=== PATIENT | female | born 1960 | race Caucasian/White ===

== ENCOUNTER 2020-08-14 13:41 | Outpatient (REF) | payer OTHER, SELFPAY ==
[2020-08-14 14:57] LABS: MANUAL DIFF FLAG NO
[2020-08-14 14:59] LABS: Basophils Absolute Auto 0.1 X10*3/uL (0.0-0.2); Basophils Percent Auto 0.6 % (0-2); Eosinophils Absolute Auto 0.1 X10*3/uL (0.0-0.4); Eosinophils Percent Auto 1.4 % (0-4); Hematocrit 42.5 % (37-47); Hemoglobin 13.3 g/dl (12.0-16.0); Imm Gran Abs Auto 0.02 X10*3/uL (0.00-0.03); Imm Gran Pct Auto 0.2 % (0.0-0.4); Lymphocytes Absolute Auto 2.6 X10*3/uL (1.2-4.9); Lymphocytes Percent Auto 29.7 % (20-40); Mean Corpuscular HGB Conc 31.3 g/dl (31.0-35.0); Mean Corpuscular Hemoglobin 27.1 pg (27.0-33.0); Mean Corpuscular Volume 86.6 fL (80-98); Monocytes Absolute Auto 0.5 X10*3/uL (0.1-1.2); Monocytes Percent Auto 5.8 % (2-11); Neutrophils Absolute Auto 5.4 X10*3/uL (2.0-8.3); Neutrophils Percent Auto 62.3 % (45-73); Platelet Count 180 X10*3/uL (160-400); Red Blood Count 4.91 X10*6/uL (4.20-5.50); Red Cell Distribution Width 13.9 % (11.0-16.0); White Blood Count 8.7 X10*3/uL (4.8-10.8)
[2020-08-14 15:31] LABS: Anion Gap 16 (12-20); Blood Urea Nitrogen 23 mg/dL (9-16); Carbon Dioxide 29 mmol/L (22-29); Chloride 100 mmol/L (96-108); Estimated Glomerular Filt Rate > 60; Glucose Random 85 mg/dL (60-115); Potassium 4.5 mmol/l (3.3-5.1); Sodium 140 mmol/L (135-145)
== END 2020-08-14 13:42 | disposition home or self-care (01) ==
LOC: HO.LAB 13:41
PROVIDERS: PCP Internal Medicine; Visit Provider Physician Assistant
DX: Z01.812 Encounter for preprocedural laboratory examination (principal); M17.12 Unilateral primary osteoarthritis, left knee
CPT/HCPCS: 36415; 80048; 85025

== ENCOUNTER 2020-08-19 06:00 | Inpatient (IN) | payer OTHER, SELFPAY ==
[2020-08-05 12:20] VITALS: BP 164/93; PULSE 68; RESP 20; O2SAT 99; BMI 30.4
--- NOTE | 2020-08-05 12:26 | HO.ANESPROP2 ---
Documented by User: Meena Huston 08/18/20 09:59 HPI - Anesthesia Eval Consult details Narrative: 60yo F for Left Knee Replacement Total Originally scheduled for 03/2020, but patient had fall with Lef[place] III facial fractures s/p ORIF. PCP Cleared Pt requests only in network anesthesia. [facility] Past Medical History Medical History Arthritis Closed [place] III fracture Hx of fracture of face bones Hypertension Family History Family history of problems with anesthesia: No Surgical History Surgical History History of dental surgery History of left knee surgery History of lumbar discectomy Hx of section Hx of hysterectomy History of Problems with Anesthesia: No Social History Social History Are you a primary health care marketing manager to a significant other at home: No Do you presently have visiting nurse or other home services: No Smoking Status: Former smoker Tobacco Type: Cigarette Smoking Quit Date: 01/2018 Second Hand Smoke Exposure: No Use of substances other than those prescribed or required for medical reasons: No Have you been hit, kicked, punched, or otherwise hurt by someone within the past year? 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 >4 mets with working on feet. Meds Allergies Allergy/AdvReac Type Severity Reaction Status Date / Time No Known Allergies Allergy Verified 08/19/20 06:30 [No Known Allergies*] Home Medications Medication Instructions Recorded Confirmed Type gabapentin 2 cap PO BEDTIME 08/05/20 08/05/20 History lisinopril 1 tab PO DAILY 08/05/20 08/05/20 History Exam Exam Date and Time: August 05, 2020 1226 Height,Weight and Vital Signs: Height 5 ft 6 in Weight 85.729 kg Last Vital Signs Pulse 68 08/05/20 12:20 Resp 20 08/05/20 12:20 BP 164/93 H 08/05/20 12:20 Pulse Ox 99 08/05/20 12:20 Pertinent Lab Results Pertinent Lab Results: 12/1/20 Outside lab results Na 140, K 4.0, Cl 102, CO2 27, BUN 24(H), Creat 0.90 WBC, Hgb, Hct, Plt WNL Narrative Narrative: EKG 08/05/20: SR@66, PVC Airway Mallampati Class: I TM Dist: >3cm Neck ROM: Full Denture: Upper (Doesn't wear since upper jaw fx) Heart: RRR Lungs: CTAB Assessment and Plan Assessment Anesthesia Assessment: Anesthesia Plan Discussed (Spinal and block) and PAT Visit Documented by User: Edenilson Kimble MD 08/19/20 08:31 PMFSH Past Medical History Medical History Arthritis Closed [place] III fracture Hx of fracture of face bones Hypertension Surgical History Surgical History History of dental surgery History of left knee surgery History of lumbar discectomy Hx of section Hx of hysterectomy Social History Social History Are you a primary health care marketing manager to a significant other at home: No Do you presently have visiting nurse or other home services: No Smoking Status: Former smoker Tobacco Type: Cigarette Smoking Quit Date: 01/2018 Second Hand Smoke Exposure: No Use of substances other than those prescribed or required for medical reasons: No Have you been hit, kicked, punched, or otherwise hurt by someone within the past year? 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[employer] Allergies Allergy/AdvReac Type Severity Reaction Status Date / Time No Known Allergies Allergy Verified 08/19/20 06:30 [No Known Allergies*] Home Medications Medication Instructions Recorded Confirmed Type gabapentin 2 cap PO BEDTIME 12/01/20 12/01/20 History lisinopril 1 tab PO DAILY 08/05/20 08/05/20 History Assessment and Plan Assessment Anesthesia Assessment: Anesthesia Plan Discussed, PAT Visit and Chart Reviewed Final Anesthetic Review NPO: Yes ASA Class: II Final Preanesthetic Review: No Changes in Pt Med Stat, Meds/Allgs Chart Reviewed, Consent Obtained/Reviewed and Anes Risks/Benef Reviewed Patient Risk: Low Procedure Risk: Intermediate Anesthetic Plan Anesthetic Plan: MAC:, Spinal and Regional Block Disposition: Standard PACU
[2020-08-19] VITALS (17 sets, daily range): BP systolic 88–143; BP diastolic 53–96; PULSE 52–90; RESP 16–20; TEMP 36.1–36.8; O2SAT 67–100
[2020-08-19] MEDS: Gabapentin 600 MG TABLET PO (06:30)
[2020-08-19] MEDS: ceFAZolin Sodium/Dextrose,Iso 2 GM/50 ML PIGGYBACK IV ×2 (06:31→12:14)
[2020-08-19 06:32] LABS: COVID-19 Test Negative (Negative)
[2020-08-19] MEDS: Lactated Ringers 1,000 ML 100 ML IVCONT (06:50)
--- NOTE | 2020-08-19 07:28 | MHC.SHP ---
Pre-Procedural Eval Section A The patient is an INPATIENT: No Changes since office visit: Yes Patient answered all questions; No Cold of Flu in the past 2 weeks, No New Medical Problems and No Changes in Medication The History & Physical has been completed within 30 days and I have reviewed it.: No Section B Chief Complaint: LEFT TOTAL KNEE ARTHROPLASTY Allergies: Allergies Allergy/AdvReac Type Severity Reaction Status Date / Time No Known Allergies Allergy Verified 08/19/20 06:30 [No Known Allergies*] Plan Patient has been examined and remains a candidate for the planned procedure
--- NOTE | 2020-08-19 09:10 | PM.OP ---
Brief Operative Note Date of Service: 08/19/20 Pre-op diagnosis: left knee oa Post-op diagnosis: same Procedure: left tka Implants: [place] triathalon press fit 11/06/09 Surgeon: Delfin Suazo MD Anesthesia: regional and spinal Echo Technologist: Freddy Alberto Estimated blood loss (mL): 150 Tourniquet time (min): 0 IV fluids (mL): 800 Urine output (mL): 0 Pathology: other Condition: stable Disposition: PACU
--- NOTE | 2020-08-19 09:45 | XR_ITS ---
EXAMINATION: XR KNEE, LEFT CLINICAL INFORMATION: Status post left TKA COMPARISON: 05/17/2019 TECHNIQUE: Two views of the left knee. FINDINGS: Left total knee arthroplasty, with usual position and alignment of the arthroplasty components. Gas is seen in the joint space and soft tissues. Skin hussein. No acute periprosthetic fractures. XR/XR knee LT 2V IMPRESSION: Postsurgical changes status post left total knee arthroplasty..
--- NOTE | 2020-08-19 10:29 | OP_ITS ---
SURGEON: Delfin Suazo MD INDICATIONS: This is a 60-year-old female with osteoarthritis of the left knee, consented to undergo total knee arthroplasty. PREOPERATIVE DIAGNOSIS: Left knee osteoarthritis. POSTOPERATIVE DIAGNOSIS: Left knee osteoarthritis. PROCEDURE PERFORMED: Left total knee arthroplasty. ESTIMATED BLOOD LOSS: 150 mL. COMPLICATIONS: None known. ANESTHESIA: Regional and spinal. ASSISTANTS: JOVANNI Currie. SPECIMENS: IMPLANTS: [place] [employer] press-fit 11/06/09A. FLUIDS: 800. PROCEDURE IN DETAIL: The patient was brought to the operating room, placed supine on the operative table and prepped and draped in standard sterile fashion. Time-out was called to identify proper site, proper procedure, proper surgeon. IV antibiotics per weight was administered as well as 1 g of IV tranexamic acid. Midline incision was then made over previous patellar fracture incision. I dissected down her neck and performed a medial parapatellar arthrotomy. I translated the patella and flexed up the knee. She had tricompartmental severe osteoarthritis most notably in the articulation. She had some FiberWire evidenced from prior patella ORIF. I resected the fat pad, performed a small medial peel, used [place]'s line to drill my intramedullary femoral guide and then made my distal femoral cut in 5 degrees of valgus. I then sized a size 3 femur and made my anterior, posterior, and chamfer cuts, protecting soft tissues at all times. I then turned my attention to the tibia, where I took a 9 mm of the lateral side in line with the tibial crest and tibial tubercle. Posterior soft tissues were protected at all times. Meniscus was removed and once I had removed all of debris, a size 4 tibia was placed and trialed with size 3 femur. I was happy with the range of motion and stability. The undersurface of the patella was then resurfaced, and a 32A patella was selected. Again, I took knee through range of motion. I was happy with the tracking. Lug holes in the femur were drilled, tibial canal prepared, and all instrumentation removed. Copious irrigation was performed and then the tibia and femur were press-fit in standard fashion as well as the patella. Then, I trialed a 9 and 11 and was happiest with a 10. 10 mm CR insert was placed. All instrumentation was removed. 1 g of local TXA with 3-minute iodine soak was performed. Layered closure was performed with hussein on the skin. The patient was placed in sterile dressing, awakened from sedation, and brought to recovery room in stable condition. There were no known complications. MD LOPEZ Friedman/JETHOR / [id number]
[2020-08-19] MEDS: Dextrose 5 % and 0.45 % NaCl 1,000 ML 80 ML IVCONT (12:13)
[2020-08-19] MEDS: HYDROmorphone HCl 0.5 MG/0.5 ML SYRINGE 0.25 MG IVPUSH ×2 (14:00→17:52)
[2020-08-19] MEDS: ondansetron HCL 4 MG/2 ML VIAL IVPUSH (14:00)
--- NOTE | 2020-08-19 15:08 | PM.IMCN ---
History of Present Illness Data of Consult Service Date: 08/19/20 Requesting physician: Saud Mata Primary Care Provider: Frederick Bush MD [facility] Reason for consult: Medical Management 60-year-old woman admitted by Orthopedic surgery and is status post left total knee arthroplasty. Surgery was unremarkable. Patient has been able to eat and drink without any nausea or vomiting. She does have a moderate amount of pain. Her vital signs are stable. He is currently resting in bed with no acute medical complaints. Review of Systems Review of Systems: Denies any recent fever chills or decrease in appetite respiratory denies any shortness of breath coverage production cardiovascular is adjustment of any PND or edema gastrointestinal denies any dysphagia abdominal pain nausea vomiting or diarrhea genitourinary denies any dysuria frequency or hematuria musculoskeletal Knee pain neuropsych denies any weakness or seizures all other systems reviewed are negative [facility] Medical History Arthritis Closed [place] III fracture Hx of fracture of face bones Hypertension Surgical History History of dental surgery History of left knee surgery History of lumbar discectomy Hx of section Hx of hysterectomy Social History Are you a primary childbirth and infant care teacher to a significant other at home: No Do you presently have visiting nurse or other home services: No Smoking Status: Former smoker Tobacco Type: Cigarette Smoking Quit Date: 01/2018 Second Hand Smoke Exposure: No Use of substances other than those prescribed or required for medical reasons: No Have you been hit, kicked, punched, or otherwise hurt by someone within the past year? 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 [employer] Allergies Allergy/AdvReac Type Severity Reaction Status Date / Time No Known Allergies Allergy Verified 08/19/20 06:30 [No Known Allergies*] Home Medications Medication Instructions Recorded Confirmed Type gabapentin 600 mg PO BEDTIME PRN 08/05/20 08/19/20 History lisinopril 10 mg PO DAILY 08/05/20 08/19/20 History tizanidine 4 mg PO BEDTIME PRN 08/19/20 08/19/20 History Physical Exam Vital Signs and Narrative: Vital Signs: Last Vital Signs Temp 97.5 F 08/19/20 12:00 Pulse 67 08/19/20 14:11 Resp 17 08/19/20 12:00 BP 113/72 08/19/20 14:11 Pulse Ox 100 08/19/20 12:00 Body Mass Index 30.4 Appearing in no acute distress head is normocephalic atraumatic eyes pupils are PERRLA sclera is anicteric mouth throat mucous membranes are intact and moist neck is supple no lymphadenopathy, no JVD noted lung sounds are clear to auscultation heart regular rate rhythm, clear S1, S2 positive bowel sounds, abdomen is soft, nontender neuro patient is alert x3, no focal deficits MSK dressing clean dry and intact Results Labs Labs: Laboratory Results - last 24 hr 08/19/20 06:08 COVID-19 (KATIE) Negative COVID-19 Clin Com See Note Imaging Radiologist's Impressions: Impressions Knee X-Ray 08/19/20 09:45 IMPRESSION: Postsurgical changes status post left total knee arthroplasty.. Assessment and Plan (1) Osteoarthritis of left knee: Status: Acute 60-year-old woman status post left total knee arthroplasty. Left total knee arthroplasty. Management as per surgical team. Pain management. Hypertension. Stable blood pressure. Continue lisinopril. Restless legs syndrome. Continue gabapentin. DVT prophylaxis with full-dose aspirin. Discussed with Dr. Loyola Full code
[2020-08-19] MEDS: oxyCODONE HCl Immed Release 5 MG TABLET PO ×2 (15:24→21:32)
[2020-08-19] MEDS: oxyCODONE HCl ER 10 MG TAB.ER.12H PO (21:32)
[2020-08-19] MEDS: Gabapentin 300 MG CAPSULE 600 MG PO (21:32)
[2020-08-19] MEDS: Celecoxib 200 MG CAPSULE PO (21:32)
[2020-08-20] MEDS: Dextrose 5 % and 0.45 % NaCl 1,000 ML 80 ML IVCONT (00:29)
[2020-08-20 03:00] VITALS: BP 134/68; PULSE 78; RESP 19; TEMP 36.4; O2SAT 96
[2020-08-20] MEDS: oxyCODONE HCl Immed Release 5 MG TABLET PO ×3 (04:30→12:57)
[2020-08-20 07:16] VITALS: BP 149/83; PULSE 83; RESP 17; TEMP 36.9; O2SAT 96
[2020-08-20] MEDS: Aspirin 325 MG TABLET PO (08:42)
[2020-08-20] MEDS: Celecoxib 200 MG CAPSULE PO (08:43)
[2020-08-20] MEDS: oxyCODONE HCl ER 10 MG TAB.ER.12H PO (08:43)
[2020-08-20] MEDS: lisinopriL 10 MG TABLET PO (08:43)
[2020-08-20 09:00] LABS: MANUAL DIFF FLAG NO
[2020-08-20 09:41] LABS: Anion Gap 11 (12-20); Blood Urea Nitrogen 18 mg/dL (9-16); Calcium 7.8 mg/dL (8.4-10.2); Carbon Dioxide 28 mmol/L (22-29); Chloride 100 mmol/L (96-108); Creatinine Clr Calc Pharmacy 81.4; Estimated Glomerular Filt Rate > 60; Glucose Fasting 115 mg/dL (60-99); Potassium 4.2 mmol/l (3.3-5.1); Sodium 135 mmol/L (135-145)
[2020-08-20 10:13] VITALS: BP 149/83; PULSE 83; O2SAT 96
--- NOTE | 2020-08-20 10:13 | MHC.CM.PN ---
PT ADMITTED S/P LTKA, DISCHARGE PLAN TODAY W/ HOME PHYSICAL THERAPY, PER PT SHE WILL USE [facility], [facility] TO TRANSPORT PATIENT. 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 PHARMACY: [facility]
--- NOTE | 2020-08-20 10:15 | P.PNOP_ITS ---
Subjective Subjective Date of Service: 08/20/20 Principal diagnosis: LT TKA Interval history: POD 1 s/p LT TKA no overnight events, has been out of bed ambulating and using commode. She is tolerating pain well with medication. No concerns Physical Exam Vital Signs: Vital Signs: Last Vital Signs Temp 98.5 F 08/20/20 07:16 Pulse 83 08/20/20 10:13 Resp 17 08/20/20 07:16 BP 149/83 H 08/20/20 10:13 Pulse Ox 96 08/20/20 10:13 Body Mass Index 30.4 Const: General: cooperative, healthy appearing and no acute distress Resp: Effort & Inspection: normal respiratory effort and able to speak in complete sentences Cardio: Rate: regular rate Peripheral pulses: Peripheral pulses 2+ throughout GI: Inspection: Yes normal to inspection Palpation (GI): Soft to palpation Skin: General skin exam: no rashes or lesions noted Extrem: Other: Left knee bandage intact, no erythema mild edema, calf supple non tender. Progress Note: A&P Assessment and plan (1) Status post total left knee replacement: Status: Acute Assessment and Plan: Continue pain mgmnt Begin asa dvt ppx begin PT for LT TKA Dispo planning-Pending PT eval, pain mgmnt Fall Risk Details Current Medications: Current Medications Generic Name Dose Route Start Last Admin Trade Name Freq PRN Reason Stop Dose Admin Acetaminophen 650 mg 08/19/20 11:46 Acetaminophen 325 Mg Tablet PO Q6H PRN Pain, Mild (Pain Scale 1-3) Aspirin 325 mg 08/20/20 10:00 Aspirin 325 Mg Tablet PO BID VINOD Celecoxib 200 mg 08/19/20 21:00 08/19/20 21:32 Celecoxib 200 Mg Capsule PO 200 mg BID VINOD Administration Gabapentin 600 mg 08/19/20 21:00 08/19/20 21:32 Gabapentin 300 Mg Capsule PO 600 mg BEDTIME VINOD Administration Hydromorphone HCl 0.25 mg 08/19/20 11:46 08/19/20 17:52 Hydromorphone Hcl 0.5 Mg/0.5 Ml Syringe IVPUSH 0.25 mg Q4H PRN Administration Pain, Severe (Pain Scale 7-10) Dextrose/Sodium Chloride 1,000 mls @ 80 mls/hr 08/19/20 11:46 08/20/20 00:29 D51/2ns IVCONT 80 mls/hr .[id number] VINOD Administration Lisinopril 10 mg 08/20/20 09:00 Lisinopril 10 Mg Tablet PO DAILY [facility] Protocol Naloxone HCl 0.2 mg 08/19/20 11:46 Naloxone Hcl 0.4 Mg/Ml Vial IVPUSH Q2M PRN Excessive sedation or RR < 8 Ondansetron HCl 4 mg 08/19/20 11:46 08/19/20 14:00 Ondansetron Hcl 4 Mg/2 Ml Vial IVPUSH 4 mg Q8H PRN Administration Nausea and Vomiting Oxycodone HCl 5 mg 08/19/20 11:46 08/20/20 04:30 Oxycodone Hcl Immed Release 5 Mg Tablet PO 5 mg Q4H PRN Administration Pain, Moderate (Pain Scale 4-6 Oxycodone HCl 10 mg 08/19/20 21:00 08/19/20 21:32 Oxycodone Hcl Er 10 Mg Tab.Er.12h PO 10 mg BID VINOD Administration Pharmacy Consult 1 each 08/19/20 14:57 Consult Rx Perform Med Rec MISCELLANE ONCE PRN Consult order Senna 17.2 mg 08/19/20 11:46 Sennosides 8.6 Mg Tablet PO BEDTIME PRN Constipation Time Spent With Patient Time: Total time spent is greater than 50% in coordination of care (as do cumented) at patient's floor/unit and/or counseling patient: Time with patient: 15 - 24 minutes
[2020-08-20 10:42] LABS: Basophils Percent Auto 0.4 % (0-2); Eosinophils Percent Auto 0.4 % (0-4); Hematocrit 33.4 % (37-47); Hemoglobin 10.4 g/dl (12.0-16.0); Imm Gran Abs Auto 0.03 X10*3/uL (0.00-0.03); Imm Gran Pct Auto 0.3 % (0.0-0.4); Lymphocytes Absolute Auto 1.1 X10*3/uL (1.2-4.9); Lymphocytes Percent Auto 11.5 % (20-40); Mean Corpuscular HGB Conc 31.1 g/dl (31.0-35.0); Mean Corpuscular Hemoglobin 27.2 pg (27.0-33.0); Mean Corpuscular Volume 87.4 fL (80-98); Mean Platelet Volume 11.4 fL (9.4-12.3); Monocytes Absolute Auto 0.8 X10*3/uL (0.1-1.2); Monocytes Percent Auto 7.8 % (2-11); Neutrophils Absolute Auto 7.8 X10*3/uL (2.0-8.3); Neutrophils Percent Auto 79.6 % (45-73); Platelet Count 160 X10*3/uL (160-400); Red Blood Count 3.82 X10*6/uL (4.20-5.50); Red Cell Distribution Width 13.8 % (11.0-16.0); White Blood Count 9.8 X10*3/uL (4.8-10.8)
[2020-08-20 11:41] VITALS: BP 151/84; PULSE 89; RESP 15; TEMP 36.7; O2SAT 96
[2020-08-20 13:01] VITALS: BP 151/84; PULSE 89; O2SAT 96
--- NOTE | 2020-08-20 14:14 | P.F2F_ITS ---
Service Date Service Date: 08/20/20 Reasons for Services Reason for physical therapy: home safety and mobility, therapeutic exercises, restore joint function, gait/transfer training and ADL training Reason for occupational therapy: home safety and mobility, therapeutic exercises, restore joint function, gait/transfer training and ADL training Overseeing Care: Delfin Suazo Homebound: Leaving the home is medically contraindicated at this time without the asist of a device and/or another person due th the listed conditions above and below. Reason homebound: unsteady gait / fall risk, leg weakness, pain with ambulation, pain with transfers, poor balance / fall risk and unable to drive Homebound supporting statement: Pt. is considered home bound due to recent surgery. Unable to drive, poor balance, poor gait mechanics. Certification: Based on the above findings, I certify that this patient is confined to the home and needs intermittent halfway care, physical therapy and/or speech therapy, or continues to need occupational therapy. The patient is under my care, and I have initiated the establishment of the plan of care. The patient will be followed by a physician who will periodically review the plan of care.
--- NOTE | 2020-08-20 14:23 | HO.POSTANES ---
Post Anesthesia Evaluation Post Anesthesia Evaluation Vital Signs: Vital Signs Temp Pulse Resp BP Pulse Ox 08/20/20 13:01 89 151/84 H 96 08/20/20 11:41 98.0 F 89 15 151/84 H 96 08/20/20 10:13 83 149/83 H 96 08/20/20 07:16 98.5 F 83 17 149/83 H 96 08/20/20 03:00 97.6 F 78 19 134/68 96 Anesthesia: Spinal and Nerve Block Mental Status: Awake Pain Control: Satisfactory Nausea/Vomiting: None Hydration: Adequate Anesthesia-Related Issues: No Anes. Related Issues
--- NOTE | 2020-08-20 15:13 | P.DS_ITS ---
DS: Providers Provider Date of admission: 08/19/20 06:00 Primary care physician: Frederick Bush MD Consults: 08/19/20 11:46 Consult to Hospitalist Routine Consulting Provider: Hospitalist Reason for consultation: medical management post op TKA LT DS: Diagnosis Discharge Diagnosis (1) Status post total left knee replacement: Status: Acute Problem details: Ms Fay is a 60-year-old female who presented to the office with left knee pain. She was found have osteoarthritis of the left knee. She failed all conservative measures and continued to have pain with daily activities therefore she agreed to move forward with left total knee arthroplasty DS: Medications Discharge Medications Home Medications: Home Medications Medication Instructions Recorded Confirmed gabapentin 600 mg PO BEDTIME PRN 08/05/20 08/19/20 lisinopril 10 mg PO DAILY 08/05/20 08/19/20 tizanidine 4 mg PO BEDTIME PRN 08/19/20 08/19/20 Previous Rx's Medication Instructions Recorded acetaminophen 650 mg PO Q6H PRN 30 Days #240 tab 08/20/20 aspirin 325 mg PO BID 14 Days #28 tab 08/20/20 oxycodone 5 mg PO Q4H PRN 7 Days #42 tab 08/20/20 sennosides [Senna Lax] 17.2 mg PO BEDTIME PRN 30 Days #60 08/20/20 tab DS: Summary Hospital Course Hospital Course: Patient underwent a successful left total knee arthroplasty. She was transferred to PACU and then to the floor where she recovered. During her stay her vitals are stable she is afebrile at 98.0, labs unremarkable hemoglobin 10.4 and hematocrit 33.4. Postop day 1 she was started on aspirin for DVT prophylaxis and she received physical therapy services twice a day. Prior to discharge her Aquacel dressing was changed incision clean dry and intact new Aquacel dressing applied and the plan is to be discharged with home therapy. Time Spent with Patient Time attestation: Total time spent providing and/or coordinating discharge services: Physical Exam Vital Signs: Vital Signs: Last Vital Signs Temp 98.0 F 08/20/20 11:41 Pulse 89 08/20/20 13:01 Resp 15 08/20/20 11:41 BP 151/84 H 08/20/20 13:01 Pulse Ox 96 08/20/20 13:01 Body Mass Index 30.4 Const: General: cooperative, healthy appearing and no acute distress Resp: Effort & Inspection: normal respiratory effort and able to speak in complete sentences Cardio: Rate: regular rate Peripheral pulses: Peripheral pulses 2+ throughout GI: Inspection: Yes normal to inspection Palpation (GI): Soft to palpation Skin: General skin exam: no rashes or lesions noted Extrem: Other: Left knee skin intact. Amie intact. No erythema or drainage. Calf supple nontender. DS: Data Data Completed and Pending Pending studies at discharge: Pending at discharge 08/19/20 08:59 Surgical [PTH] Routine Labs on day of discharge: 08/14/20 14:42 Type and Screen Routine 08/19/20 05:57 Gabapentin [Neurontin] 600 mg PO PREOP ONE ceFAZolin Sodium/Dextrose,Iso [Ancef] 2 gm in 50 ml IV PREOP 08/19/20 05:57 Providone-Iodine Solution 5% nasal swab .Both Nares x2 pre-op 08/19/20 06:00 Lactated Ringers [Lr] 1,000 ml IVCONT 100 mls/hr 08/19/20 06:08 COVID-19 ID NOW (Adrian) Stat 08/19/20 06:18 Gabapentin [Neurontin] 300 mg .ROUTE .STK-MED ONE ceFAZolin Sodium/Dextrose,Iso [Ancef] 2 gm in 50 ml .ROUTE As directed 08/19/20 07:15 Bupivacaine MPF 0.5 % [Sensorcaine MPF 0.5% 30 ML] 30 ml .ROUTE .STK-MED ONE Lidocaine HCl 2 % MPF [Xylocaine 2 % MPF] 5 ml .ROUTE .STK-MED ONE Midazolam HCl/PF [Versed] 2 mg .ROUTE .STK-MED ONE 08/19/20 08:31 Vital Signs Q1H Acetaminophen [Tylenol] 650 mg PO ONCE PRN Ketorolac Tromethamine [Toradol] 15 mg IVPUSH ONCE PRN ondansetron HCL [Zofran] 4 mg IVPUSH ONCE PRN oxyCODONE HCl Immed Release [Roxicodone] 5 mg PO ONCE PRN 08/19/20 08:38 Phenylephrine HCL 1,000 mcg IVPUSH .STK-MED ONE Tranexamic Acid [Cyklokapron] 1,000 mg .ROUTE .STK-MED ONE 08/19/20 08:43 Tranexamic Acid [Cyklokapron] 1,000 mg .ROUTE .STK-MED ONE 08/19/20 08:50 propofoL [Diprivan] 200 mg IVPUSH .STK-MED ONE 08/19/20 08:52 propofoL [Diprivan] 200 mg IVPUSH .STK-MED ONE 08/19/20 09:24 Transfer Order Routine 08/19/20 09:45 XR knee LT 2V Stat 08/19/20 12:31 ceFAZolin Sodium/Dextrose,Iso [Ancef] 2 gm in 50 ml IV POSTOP 08/20/20 08:12 Basic Metabolic Panel Fasting DAILY@0600 Complete Blood Count Auto Diff DAILY@0600 Laboratory Last Values WBC 9.8 X10*3/uL (4.8-10.8) 08/20/20 08:12 RBC 3.82 X10*6/uL (4.20-5.50) L D 08/20/20 08:12 Hgb 10.4 g/dl (12.0-16.0) L D 08/20/20 08:12 Hct 33.4 % (37-47) L D 08/20/20 08:12 MCV 87.4 fL (80-98) 08/20/20 08:12 MCH 27.2 pg (27.0-33.0) 08/20/20 08:12 MCHC 31.1 g/dl (31.0-35.0) 08/20/20 08:12 RDW 13.8 % (11.0-16.0) 08/20/20 08:12 Plt Count 160 X10*3/uL (160-400) 08/20/20 08:12 MPV 11.4 fL (9.4-12.3) 08/20/20 08:12 Immature Gran % (Auto) 0.3 % (0.0-0.4) 08/20/20 08:12 Neut % (Auto) 79.6 % (45-73) H 08/20/20 08:12 Lymph % (Auto) 11.5 % (20-40) L 08/20/20 08:12 [place] % (Auto) 7.8 % (2-11) 08/20/20 08:12 Eos % (Auto) 0.4 % (0-4) 08/20/20 08:12 Baso % (Auto) 0.4 % (0-2) 08/20/20 08:12 Lymph # (Auto) 1.1 X10*3/uL (1.2-4.9) L 08/20/20 08:12 [place] # (Auto) 0.8 X10*3/uL (0.1-1.2) 08/20/20 08:12 Eos # (Auto) 0.0 X10*3/uL (0.0-0.4) 08/20/20 08:12 Baso # (Auto) 0.0 X10*3/uL (0.0-0.2) 08/20/20 08:12 Abs Immat Gran (auto) 0.03 X10*3/uL (0.00-0.03) 08/20/20 08:12 Absolute Neuts (auto) 7.8 X10*3/uL (2.0-8.3) 08/20/20 08:12 Absolute Nucleated RBC 0.000 X10*3/uL (0.0-0.012) 08/20/20 08:12 Nucleated RBC % (auto) 0.0 /100WBC (0.0-0.2) 08/20/20 08:12 Sodium 135 mmol/L (135-145) 08/20/20 08:12 Potassium 4.2 mmol/l (3.3-5.1) 08/20/20 08:12 Chloride 100 mmol/L (96-108) 08/20/20 08:12 Carbon Dioxide 28 mmol/L (22-29) 08/20/20 08:12 Anion Gap 11 (12-20) L 08/20/20 08:12 BUN 18 mg/dL (9-16) H 08/20/20 08:12 Creatinine 0.79 mg/dL (0.5-1.4) 08/20/20 08:12 Estim Creat Clear Calc 81.4 08/20/20 08:12 Estimated GFR > 60 08/20/20 08:12 Fasting Glucose 115 mg/dL (60-99) H 08/20/20 08:12 Calcium 7.8 mg/dL (8.4-10.2) L D 08/20/20 08:12 COVID-19 (KATIE) Negative (Negative) 08/19/20 06:08 COVID-19 Clin Com See Note 08/19/20 06:08 Blood Type AB Positive 08/14/20 14:42 Antibody Screen NEGATIVE 08/14/20 14:42 Discharge Plan Discharge Patient Disposition: Home Health Service Referrals: [facility] [Outside] (DISCHARGE WITH HOME PHYSICAL THERAPY IF YOU HAVE NOT HEARD FROM [facility] BY NOON PLEASE CALL ABOVE NUMBER) Freddy Alberto PA-C [Physician Mine Safety Director] - (f/u post op appt) Discharge Medications: New sennosides [Senna Lax] 8.6 mg Tablet 17.2 mg PO BEDTIME PRN (Reason: Constipation) 30 Days Qty: 60 RF: 0 acetaminophen 325 mg Tablet 650 mg PO Q6H PRN (Reason: Pain, Mild (Pain Scale 1-3)) 30 Days Qty: 240 RF: 0 aspirin 325 mg Tablet 325 mg PO BID 14 Days Qty: 28 RF: 0 oxycodone 5 mg Tablet 5 mg PO Q4H PRN (Reason: Pain, Moderate (Pain Scale 4-6) 7 Days Qty: 42 RF: 0 Continued lisinopril 10 mg tablet 10 mg PO DAILY RF: 0 gabapentin 300 mg capsule 600 mg PO BEDTIME PRN (Reason: Pain) RF: 0 tizanidine 4 mg Tablet 4 mg PO BEDTIME PRN (Reason: Muscle Pain) RF: 0 Discharge Orders: Discharge Order (Routine); Ordered 08/20/20 Ordered By: Freddy Alberto Diet: regular diet Activity on Discharge: Use cane or walker Activity Restrictions/Additional Instructions: * Physical Therapy for ROM 0-120, quad strength, gait training . Use walker for ambulation * Limit stair climbing, No shower, No tub bath, No driving * Continue Aspirin for 2 weeks * Keep Aquacel dressing clean, dry and intact. * Follow up with orthopedics in 2 weeks Visit Report Forms: Patient Portal Discharge page Care Plan Goals: Restore function left knee Health Concerns: none Plan of Treatment: Physical Therapy Pain management DVT prophylaxis
--- NOTE | 2020-08-20 15:22 | MHC.CM.PN ---
PT DISCHARGING HOME W/HOME W/[facility] FOR HOME PHYSICAL THERAPY, PT WILL CALL [facility] TO TRANSPORT.
--- NOTE | 2020-08-20 15:31 | P.PNIM_ITS ---
Subjective Subjective Date of Service: 08/20/20 Interval History: Patient seen and examined at bedside. She reports that her pain is better controlled today. She has no chest pain, no nausea or vomiting, has not moved her bowels today otherwise has not abdominal pain. Physical Exam Vital Signs: Vital Signs: Last Vital Signs Temp 98.0 F 08/20/20 11:41 Pulse 89 08/20/20 13:01 Resp 15 08/20/20 11:41 BP 151/84 H 08/20/20 13:01 Pulse Ox 96 08/20/20 13:01 Body Mass Index 30.4 Const: General: cooperative and no acute distress Resp: Effort & Inspection: normal respiratory effort Auscultation: clear to auscultation bilaterally Cardio: Rate: regular rate Rhythm: regular rhythm GI: Palpation (GI): Soft to palpation Auscultation: normal bowel sounds Neuro: Cognition (Neuro): normal cognition Extrem: Other: Left knee dressing in place General: Yes normal to inspection and Yes no pedal edema Objective Data Current Medications Generic Name Dose Route Start Last Admin Trade Name Freq PRN Reason Stop Dose Admin Acetaminophen 650 mg 08/19/20 11:46 Acetaminophen 325 Mg Tablet PO Q6H PRN Pain, Mild (Pain Scale 1-3) Aspirin 325 mg 08/20/20 10:00 08/20/20 08:42 Aspirin 325 Mg Tablet PO 325 mg BID VINOD Administration Celecoxib 200 mg 08/19/20 21:00 08/20/20 08:43 Celecoxib 200 Mg Capsule PO 200 mg BID VINOD Administration Gabapentin 600 mg 08/19/20 21:00 08/19/20 21:32 Gabapentin 300 Mg Capsule PO 600 mg BEDTIME VINOD Administration Hydromorphone HCl 0.25 mg 08/19/20 11:46 08/19/20 17:52 Hydromorphone Hcl 0.5 Mg/0.5 Ml Syringe IVPUSH 0.25 mg Q4H PRN Administration Pain, Severe (Pain Scale 7-10) Dextrose/Sodium Chloride 1,000 mls @ 80 mls/hr 08/19/20 11:46 08/20/20 00:29 D51/2ns IVCONT 80 mls/hr .[id number] VINOD Administration Lisinopril 10 mg 08/20/20 09:00 08/20/20 08:43 Lisinopril 10 Mg Tablet PO 10 mg DAILY VINOD Administration Protocol Naloxone HCl 0.2 mg 08/19/20 11:46 Naloxone Hcl 0.4 Mg/Ml Vial IVPUSH Q2M PRN Excessive sedation or RR < 8 Ondansetron HCl 4 mg 08/19/20 11:46 08/19/20 14:00 Ondansetron Hcl 4 Mg/2 Ml Vial IVPUSH 4 mg Q8H PRN Administration Nausea and Vomiting Oxycodone HCl 5 mg 08/19/20 11:46 08/20/20 12:57 Oxycodone Hcl Immed Release 5 Mg Tablet PO 5 mg Q4H PRN Administration Pain, Moderate (Pain Scale 4-6 Oxycodone HCl 10 mg 08/19/20 21:00 08/20/20 08:43 Oxycodone Hcl Er 10 Mg Tab.Er.12h PO 10 mg BID VINOD Administration Pharmacy Consult 1 each 08/19/20 14:57 Consult Rx Perform Med Rec MISCELLANE ONCE PRN Consult order Senna 17.2 mg 08/19/20 11:46 Sennosides 8.6 Mg Tablet PO BEDTIME PRN Constipation Labs CBC & Chem 7: 08/20/20 08:12 08/20/20 08:12 Assessment and Plan (1) Status post total left knee replacement: Problem details: Ms Fay is a 60-year-old female who presented to the office with left knee pain. She was found have osteoarthritis of the left knee. She failed all conse rvative measures and continued to have pain with daily activities therefore she agreed to move forward with left total knee arthroplasty Status: Acute Assessment and Plan: Left total knee arthroplasty. Management as per surgical team. Pain management. Hypertension. Stable blood pressure. Continue lisinopril. Restless legs syndrome. Continue gabapentin. DVT prophylaxis with full-dose aspirin. We will be signing off on this patient. thank you for this consultation.
== END 2020-08-20 15:34 | disposition home health service (06) | DRG 470 ==
LOC: HO.SSSA 06:01 → HO.S3 10:12
PROVIDERS: Physician Assistant; Admitting Provider Orthopaedic Surgery; PCP Internal Medicine; Visit Provider Nuclear Medicine
PROC: 0SRD0JA Replacement of Left Knee Joint with Synthetic Substitute, Uncemented, Open Approach (ICD-10-PCS; CPT 27447; principal; 2020-08-19 07:30)
DX: M17.11 Unilateral primary osteoarthritis, right knee (principal); Z20.828 Contact with and (suspected) exposure to other viral communicable diseases; Z79.899 Other long term (current) drug therapy
CPT/HCPCS: 36415; 73560; 80048; 85025; 86850; 86900; 86901; 87635; 88305; 88311; 97110; 97116; 97162; C1776; J0690; J1170; J2250; J2370; J2405

== ENCOUNTER → 2020-09-11 08:02 | Outpatient (BNVA) | payer OTHER, SELFPAY | PROVIDERS: Visit Provider Physician Assistant | DX: Z76.89 Persons encountering health services in other specified circumstances (principal) ==

== ENCOUNTER → 2020-10-13 08:42 | Outpatient (BNVA) | payer OTHER, SELFPAY | PROVIDERS: Visit Provider Orthopaedic Surgery ==

== ENCOUNTER 2020-11-10 07:22 | Outpatient (REF) | payer OTHER, SELFPAY ==
--- NOTE | ~2020-11-10 | XR_ITS ---
EXAMINATION: XR KNEE, BILATERAL XR KNEE, LEFT CLINICAL INFORMATION: Pain in the knees COMPARISON: 08/19/2020 TECHNIQUE: AP standing view both knees. Lateral and sunrise views of the left knee. FINDINGS: Left knee: There is a total left knee arthroplasty. The distal femoral component articulates appropriately with the tibial plateau and patellar components. No periprosthetic lucency or fracture. No joint effusion. The soft tissues are unremarkable. Right knee: No fracture or subluxation. Marginal osteophytes are seen at the medial and lateral compartments. The appearance is similar to prior. The soft tissues are unremarkable. XR/XR knee LT 2V IMPRESSION: Total left knee arthroplasty in typical positioning and alignment. Mild to moderate marginal osteophyte formation at the medial and lateral compartments of the right knee. This is similar to prior.
--- NOTE | ~2020-11-10 | XR_ITS ---
EXAMINATION: XR KNEE, BILATERAL XR KNEE, LEFT CLINICAL INFORMATION: Pain in the knees COMPARISON: 08/19/2020 TECHNIQUE: AP standing view both knees. Lateral and sunrise views of the left knee. FINDINGS: Left knee: There is a total left knee arthroplasty. The distal femoral component articulates appropriately with the tibial plateau and patellar components. No periprosthetic lucency or fracture. No joint effusion. The soft tissues are unremarkable. Right knee: No fracture or subluxation. Marginal osteophytes are seen at the medial and lateral compartments. The appearance is similar to prior. The soft tissues are unremarkable. XR/XR knee standing BI IMPRESSION: Total left knee arthroplasty in typical positioning and alignment. Mild to moderate marginal osteophyte formation at the medial and lateral compartments of the right knee. This is similar to prior.
== END 2020-11-10 07:23 | disposition home or self-care (01) ==
LOC: HO.HOSX 07:22
PROVIDERS: Visit Provider Orthopaedic Surgery
DX: Z47.1 Aftercare following joint replacement surgery (principal); Z96.652 Presence of left artificial knee joint
CPT/HCPCS: 73560; 73565

== ENCOUNTER 2022-09-20 06:40 | Emergency (ER) | payer MEDICAID, SELFPAY ==
--- NOTE | ~2022-09-20 | CT_ITS ---
EXAMINATION: CT CHEST, ABDOMEN AND PELVIS WITH CONTRAST. CLINICAL INFORMATION: RUQ pain/right rib pain, trauma. COMPARISON: CT chest 02/20/[address] abdomen 09/11/2018. TECHNIQUE: Multidetector volumetric imaging was performed from the thoracic inlet through the pubic symphysis following the administration of: Oral contrast: No Intravenous contrast: 85 mL Omnipaque 350 No contrast reaction reported Sagittal and coronal reformatted images were obtained on the technologist workstation. In addition, thin section, high resolution reconstruction, targeted reformatted images through the thoracic and lumbar spine were obtained with coronal and sagittal high resolution reformatted images as well. This CT examination was performed using dose optimization techniques as appropriate, variously including the following: *Automated exposure control *Adjustment of mA and/or kV according to patient size (this includes techniques or standardized protocols for targeted exams where dose is matched to indication/reason for exam; i.e. extremities or head) *Use of iterative reconstruction technique Total exam dose-length product 406 mGy-cm FINDINGS: CHEST: VASCULAR: The aorta is normal; no evidence of dissection, aneurysm, or traumatic aortic injury. The central pulmonary arteries enhance normally. AORTIC ISTHMUS: Normal. MEDIASTINUM: No mediastinal fluid or hematoma. No hilar or mediastinal lymphadenopathy. Mild coronary artery calcifications are present. LUNG: No nodules, mass, or focal consolidation. PLEURA: No pleural effusion. No pneumothorax. No pleural mass or thickening. CHEST WALL/AXILLA: Unremarkable. ABDOMEN/PELVIS : LIVER : The liver is enlarged measuring 19.6 cm in cephalocaudad dimension with decreased attenuation consistent with hepatic steatosis. There is focal fatty sparing present around the gallbladder as well as a hepatic cyst (see below). There is a benign 4.5 cm hepatic cyst present in the right lobe of the liver with an adjacent smaller 2 mm indeterminate hypodensity medial (4:26 and 13:60). No significant worrisome focal hepatic lesion or biliary ductal dilatation is present. GALLBLADDER, AND BILIARY TREE The gallbladder is unremarkable with no evidence of radiopaque gallstones, gallbladder wall thickening, or obvious pericholecystic inflammatory changes. PANCREAS: Normal; no mass or surrounding fluid. SPLEEN: Normal size. No focal lesion. ADRENAL GLANDS: Again seen is a heterogeneous left adrenal mass which has increased in size now measuring 2.5 x 2.3 x 2.5 cm. Previously by my measurements on the 09/11/2018 study, this was 2.2 x 2.1 x 2.3 cm. At the time of the prior CT scan of the abdomen, which was performed as adrenal washout study, the mass was deemed to be indeterminate for benign adenoma. KIDNEYS AND URETERS: The kidneys are normal in size, shape, and attenuation. No hydronephrosis, hydroureter, or calculi. URINARY BLADDER: No focal mass or wall thickening seen. No bladder calculi. GASTROINTESTINAL TRACT: Stomach and small bowel non-dilated. No colonic wall thickening or pericolonic inflammatory changes. Normal appendix. VASCULAR STRUCTURES: There is no evidence of aortic or iliac injury. The inferior vena cava is intact. There is an abdominal aortic aneurysm present which has increased in size from 3.2 cm in maximal transverse dimension in 2019 to 3.9 cm on the current study. The aneurysm begins about 2.5 cm below the level of the more inferior left renal artery. The aneurysm ends at the aortic bifurcation and not involving the iliac vessels. ACTIVE BLEEDING: None LYMPH NODES: No lymphadenopathy. PELVIC VISCERA: Surgically removed FREE FLUID: None. ABDOMINAL WALL: No significant hernia is appreciated. OSSEOUS STRUCTURES: No clavicle or scapula fracture. No displaced rib fracture seen. No sternal fracture seen. Normal sagittal alignment of the thoracic and lumbar spine. Vertebral body and disc heights are maintained; no compression fracture. Posterior elements intact. Degenerative changes are present throughout the visualized spine. No sacral or pelvic fracture, The visualized hips are intact. CT/CT abdomen pelvis w IV con IMPRESSION: 1. No evidence of a traumatic injury in the chest, abdomen or pelvis. 2. Enlarging abdominal aortic aneurysm measuring 3.2 cm in 2019 and 3.9 cm on the current study. Follow-up imaging is recommended every 2 years. 3. Incidental note made of an enlarged fatty liver, benign hepatic cysts, indeterminate left adrenal mass which has increased in size from 3.2 to 3.9 cm (biopsy could be performed if clinically indicated), and degenerative changes in the spine.
--- NOTE | ~2022-09-20 | XR_ITS ---
EXAMINATION: CHEST AND RIBS, RIGHT FOREARM, RIGHT HAND CLINICAL INFORMATION: Fall COMPARISON: Chest radiograph 07/13/2018, chest CT 02/20/2019 TECHNIQUE: Single view chest with 3 additional views right RIBS, 2 views right forearm, 3 views right hand FINDINGS: No significant abnormality is seen involving the heart, lungs, mediastinum or bony thorax. No rib fractures are seen. There is a comminuted fracture involving the distal radius which extends into the joint space. No significant angulation is seen. The remainder of the radius and ulna are unremarkable. Some mild degenerative changes are present at the DIP joints. No other abnormality is seen in the hand. XR/XR ribs RT min 3V w CXR1V IMPRESSION: Comminuted intra-articular distal radial fracture. No other fractures are seen.
--- NOTE | ~2022-09-20 | XR_ITS ---
EXAMINATION: CHEST AND RIBS, RIGHT FOREARM, RIGHT HAND CLINICAL INFORMATION: Fall COMPARISON: Chest radiograph 07/13/2018, chest CT 02/20/2019 TECHNIQUE: Single view chest with 3 additional views right RIBS, 2 views right forearm, 3 views right hand FINDINGS: No significant abnormality is seen involving the heart, lungs, mediastinum or bony thorax. No rib fractures are seen. There is a comminuted fracture involving the distal radius which extends into the joint space. No significant angulation is seen. The remainder of the radius and ulna are unremarkable. Some mild degenerative changes are present at the DIP joints. No other abnormality is seen in the hand. XR/XR hand RT 2V IMPRESSION: Comminuted intra-articular distal radial fracture. No other fractures are seen.
--- NOTE | ~2022-09-20 | XR_ITS ---
EXAMINATION: CHEST AND RIBS, RIGHT FOREARM, RIGHT HAND CLINICAL INFORMATION: Fall COMPARISON: Chest radiograph 07/13/2018, chest CT 02/20/2019 TECHNIQUE: Single view chest with 3 additional views right RIBS, 2 views right forearm, 3 views right hand FINDINGS: No significant abnormality is seen involving the heart, lungs, mediastinum or bony thorax. No rib fractures are seen. There is a comminuted fracture involving the distal radius which extends into the joint space. No significant angulation is seen. The remainder of the radius and ulna are unremarkable. Some mild degenerative changes are present at the DIP joints. No other abnormality is seen in the hand. XR/XR forearm RT 2V IMPRESSION: Comminuted intra-articular distal radial fracture. No other fractures are seen.
[2022-09-20 07:04] VITALS: BP 153/83; PULSE 76; RESP 20; TEMP 36.1; O2SAT 98; BMI 31.4
--- NOTE | 2022-09-20 07:55 | MHC.EDTECH ---
Pt wound cleaned
[2022-09-20 08:28] LABS: MANUAL DIFF FLAG NO
[2022-09-20 08:30] LABS: Basophils Absolute Auto 0.1 X10*3/uL (0.0-0.2); Basophils Percent Auto 0.5 % (0-2); Eosinophils Absolute Auto 0.2 X10*3/uL (0.0-0.4); Eosinophils Percent Auto 1.6 % (0-4); Hematocrit 42.1 % (37.0-47.0); Hemoglobin 13.4 g/dl (12.0-16.0); Imm Gran Abs Auto 0.04 X10*3/uL (0.00-0.03); Imm Gran Pct Auto 0.4 % (0.0-0.4); Lymphocytes Percent Auto 22.1 % (20-40); Mean Corpuscular HGB Conc 31.8 g/dl (31.0-35.0); Mean Corpuscular Hemoglobin 27.9 pg (27.0-33.0); Mean Corpuscular Volume 87.5 fL (80.0-98.0); Mean Platelet Volume 10.5 fL (9.4-12.3); Monocytes Absolute Auto 0.5 X10*3/uL (0.1-1.2); Monocytes Percent Auto 5.9 % (2-11); Neutrophils Absolute Auto 6.4 x10*3/uL (2.0-8.3); Neutrophils Percent Auto 69.5 % (45-73); Platelet Count 164 X10*3/uL (160-400); Red Blood Count 4.81 X10*6/uL (4.20-5.50); Red Cell Distribution Width 14.5 % (11.0-16.0); White Blood Count 9.2 X10*3/uL (4.8-10.8)
--- NOTE | 2022-09-20 08:30 | ED.FALL ---
HPI - Fall General Chief Complaint: Fall Stated Complaint: fall r side inj Time Seen by Provider: 09/20/22 08:05 Source: patient Mode of arrival: ambulatory Limitations: no limitations History of Present Illness HPI Narrative: 62-year-old female with a history of hypertension who presents to the emergency room with right-sided rib and abdominal pain, right upper extremity pain after fall last night. Patient reports she was getting out of her hot tub last night when she slipped falling off the edge of the hot tub landing on the deck. Denies hitting her head or loss of consciousness. Patient reports she caught herself with her right hand but then slipped hitting the ground with her ribs and abdomen. Patient denies any AC therapy. No shortness of breath, vomiting, neck pain, headache, vision changes. Patient is right-hand dominant. Related Data Home Medications Medication Instructions Recorded Confirmed gabapentin 300 mg capsule 600 mg PO BEDTIME PRN Pain 08/05/20 08/19/20 lisinopril 10 mg tablet 10 mg PO DAILY 08/05/20 08/19/20 tizanidine 4 mg tablet 4 mg PO BEDTIME PRN Muscle Pain 08/19/20 08/19/20 Previous Rx's Medication Instructions Recorded acetaminophen 325 mg tablet 650 mg PO Q6H PRN Pain, Mild (Pain 08/20/20 Scale 1-3) 30 days #240 tabs aspirin 325 mg tablet 325 mg PO BID 14 days #28 tabs 08/20/20 sennosides 8.6 mg tablet (Senna 17.2 mg PO BEDTIME PRN 08/20/20 Lax) Constipation 30 days #60 tabs oxycodone 5 mg tablet 5 mg PO Q6H PRN Pain, Moderate 09/12/20 (Pain Scale 4-6 7 days #28 tabs oxycodone 5 mg tablet 5 mg PO Q8H PRN pain #8 tabs 09/20/22 Allergies Allergy/AdvReac Type Severity Reaction Status Date / Time No Known Allergies Allergy Verified 09/20/22 07:09 [No Known Allergies*] Review of Systems Review of Systems: Yes all other systems are reviewed and are negative Constitutional: Constitutional: Reports no additional constitutional complaints, Denies body ache(s), Denies chills, Denies fever(s), Denies headache(s) and Denies weakness Eyes: Eyes: Reports no additional eye complaints and Denies change in vision ENT: Reports system reviewed and no additional complaints, except as documented, Denies dizziness, Denies headache(s), Denies nasal congestion, Denies nasal discharge and Denies neck pain Cardiovascular: Cardiovascular: Reports no additional cardiovascular complaints, Reports chest pain, Denies leg edema and Denies dyspnea Respiratory: Respiratory: Reports no additional respiratory complaints, Denies cough and Denies dyspnea Gastrointestinal: Gastrointestinal: Reports no additional gastrointestinal complaints, Reports abdominal pain, Denies diarrhea, Denies nausea and Denies vomiting Genitourinary: Genitourinary: Reports no additional female genitourinary complaints and Denies urinary incontinence Musculoskeletal: Musculoskeletal: Reports no additional musculoskeletal complaints, Denies back pain, Denies arthralgias, Denies joint swelling, Denies neck pain, Denies numbness and Denies tingling Integumentary/Breasts: Skin/Breast: Reports system reviewed and no additional complaints, except as docu and Denies rash Neurologic: Reports system reviewed and no additional complaints, except as documented, Denies Abnormal speech present, Denies dizziness, Denies headache(s), Denies numbness, Denies tingling and Denies weakness PMFSH Past Medical History Attestation statement: The following information was validated with the patient. Source: old records reviewed and nursing notes reviewed Medical History Arthritis Closed [place] III fracture Hx of fracture of face bones Hypertension Osteoarthritis of left knee Surgical History History of dental surgery History of left knee surgery History of lumbar discectomy Hx of section Hx of hysterectomy Social History Social History Are you a primary care tech to a significant other at home: No Do you presently have visiting nurse or other home services: No Second Hand Smoke Exposure: No Advance Directives: No Advance Directives Information Provided: Yes service: No Current occupational status: employed 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 [employer] Physical Exam Vital Signs: Vital Signs: Last Vital Signs Temp 96.9 F 09/20/22 07:04 Pulse 76 09/20/22 07:04 Resp 18 09/20/22 08:47 BP 153/83 H 09/20/22 07:04 Pulse Ox 98 09/20/22 07:04 O2 Del Method 09/20/22 07:04 BMI result Body Mass Index 31.4 Const: General: cooperative, healthy appearing, comfortable and no acute distress Orientation/consciousness: patient oriented x3 Limitations: no limitations HEENT: Head: Yes normal to inspection, No Leary's sign and No raccoon eyes Ears: hearing grossly normal bilaterally and TM's normal bilaterally General nose exam: Normal external nose present Face and sinus: Yes normal facial exam Mouth: Normal oral and palatal mucosa present Throat: Yes posterior oropharynx normal, Yes tonsils normal and Yes uvula midline Eyes: General: appearance normal, both eyes and all related structures Pupils: Equal, round and reactive pupils present Neck: Other: No cervical midline tenderness, step-offs deformities Neck: Yes normal visual inspection and Yes full ROM Chest: Chest palpation & inspection: normal inspection of the chest and tenderness (Tenderness to the right lateral ribs-ecchymosis noted. No crepitus or defo) Resp: Effort & Inspection: normal respiratory effort Auscultation: clear to auscultation bilaterally Cardio: Rate: regular rate Rhythm: regular rhythm Peripheral pulses: Peripheral pulses 2+ throughout GI: Inspection: Yes normal to inspection Palpation (GI): Soft to palpation and Tenderness to palpation present (GI) (Tenderness over the right upper quadrant of the abdomen-no rebound or guard) Auscultation: normal bowel sounds : General: Yes no CVA tenderness Back/Spine/Pelvis: Back: no CVA tenderness Thoracic/Lumbar Spine: thoracic and lumbar spine normal to inspection Skin: General skin exam: no rashes or lesions noted Neuro: General: patient oriented x3, moves all extremities, no focal motor deficits and normal sensation to monofilament Cranial nerves: Yes CN's II-XII intact bilaterally, Yes Equal, round and reactive pupils present, Yes Bilaterally intact EOM present, Yes Nystagmus not present, Yes Normal facial strength present and Yes Midline tongue present Cognition (Neuro): normal cognition Speech: No Abnormal speech present Gait exam (Neuro): Normal gait present Motor exam (neuro): 5/5 motor strength present throughout Sensory Exam: Normal double simultaneous stimulation for sensation Extrem: General: Yes normal to inspection Course Course Course Narrative: CT of the chest and abdomen and pelvis show no acute finding. X-ray of the wrist shows a distal right radial comminuted fracture which is intra-articular. Patient placed in a splint and given sling for home. Recommend follow-up with Orthopedics. Reviewed worrisome signs and symptoms of when to return to the emergency room. Comfortable plan for discharge home. Medications Administered Discontinued Medications Generic Name Dose Route Start Last Admin Trade Name Doris PRN Reason Stop Dose Admin Iohexol 85 ml 09/20/22 09:14 09/20/22 09:15 Iohexol 350 Mg/Ml 100 Ml Infus..Btl IV 09/20/22 09:15 85 ml ONCE ONE Administration Morphine Sulfate 2 mg 09/20/22 08:18 09/20/22 08:47 Morphine Sulfate 2 Mg/Ml Cartridge IVPUSH 09/20/22 08:19 2 mg ONCE ONE Administration Protocol Procedures Orthopedic Splinting/Casting Injury #1: Side: right Upper Extremity Injury Location: wrist Upper Extremity Immobilizer: sugar tong splint Medical Decision Making Medical Decision Making [facility] Narrative: 62-year-old female here with a mechanical fall which occurred last evening with right rib, upper abdominal discomfort and ecchymosis as well as pain and swelling to the right wrist with limited range of motion due to pain. No reports of head strike or loss of consciousness. Normal neuro exam. No AC therapy use. Patient had x-rays of the right wrist at triage which show a distal radial intra-articular fracture. Patient will be placed in a splint. X-rays of the right ribs are unremarkable. Due to bruising, significant tenderness will check CT Patient have labs, provide analgesia Differential Diagnosis Differential Diagnoses: The differential diagnosis associated with the presentation includes Fracture, contusion, liver lac Lab Data [facility] Lab Attestation statement: I reviewed the patient's lab results. 09/20/22 08:24 09/20/22 08:24 Labs: Lab Results 09/20/22 09/20/22 Range/Units 08:24 08:24 WBC 9.2 (4.8-10.8) X10*3/uL RBC 4.81 (4.20-5.50) X10*6/uL Hgb 13.4 (12.0-16.0) g/dl Hct 42.1 (37.0-47.0) % MCV 87.5 (80.0-98.0) fL MCH 27.9 (27.0-33.0) pg MCHC 31.8 (31.0-35.0) g/dl RDW 14.5 (11.0-16.0) % Plt Count 164 (160-400) X10*3/uL MPV 10.5 (9.4-12.3) fL Immature Gran % (Auto) 0.4 (0.0-0.4) % Neut % (Auto) 69.5 (45-73) % Lymph % (Auto) 22.1 (20-40) % [place] % (Auto) 5.9 (2-11) % Eos % (Auto) 1.6 (0-4) % Baso % (Auto) 0.5 (0-2) % Lymph # (Auto) 2.0 (1.2-4.9) X10*3/uL [place] # (Auto) 0.5 (0.1-1.2) X10*3/uL Eos # (Auto) 0.2 (0.0-0.4) X10*3/uL Baso # (Auto) 0.1 (0.0-0.2) X10*3/uL Abs Immat Gran (auto) 0.04 H (0.00-0.03) X10*3/uL Absolute Neuts (auto) 6.4 (2.0-8.3) x10*3/uL Absolute Nucleated RBC 0.000 (0.0-0.012) X10*3/uL Nucleated RBC % (auto) 0.0 (0.0-0.2) /100WBC Sodium 140 (135-145) mmol/L Potassium 4.6 (3.3-5.1) mmol/L Chloride 108 (96-108) mmol/L Carbon Dioxide 22 (22-29) mmol/L Anion Gap 15 (12-20) BUN 28 H (9-16) mg/dL Creatinine 0.85 (0.5-1.4) mg/dL Estim Creat Clear Calc 72.3 Estimated GFR > 60 Random Glucose 95 (60-115) mg/dL Calcium 9.2 D (8.4-10.2) mg/dL Total Bilirubin 0.4 (0.0-1.0) mg/dL Direct Bilirubin < 0.2 (0.0-0.5) mg/dL AST 21 (5-31) U/L ALT 26 (0-31) U/L Alkaline Phosphatase 84 (39-117) U/L Total Protein 7.1 (6.5-8.0) g/dL Albumin 4.0 (3.5-5.0) g/dL Independent Interpretation I performed an independent interpretation of an: Plain X-Ray (Independently reviewed the chest x-ray which shows no acute fracture. The x-ray of the right wrist shows a intra-articular distal radial fracture) and CT Scan Radiology Impression Discussion of test interpretation with radiology: I have reviewed the radiologist's reading. Radiologist Impression: EXAMINATION: CHEST AND RIBS, RIGHT FOREARM, RIGHT HAND CLINICAL INFORMATION: Fall? COMPARISON: Chest radiograph 07/13/2018, chest CT 02/20/2019? TECHNIQUE: Single view chest with 3 additional views right RIBS, 2 views right forearm, 3 views right hand? FINDINGS: No significant abnormality is seen involving the heart, lungs, mediastinum or bony thorax. No rib fractures are seen. There is a comminuted fracture involving the distal radius which extends into the joint space. No significant angulation is seen. The remainder of the radius and ulna are unremarkable. Some mild degenerative changes are present at the DIP joints. No other abnormality is seen in the hand. XR/XR forearm RT 2V IMPRESSION: Comminuted intra-articular distal radial fracture. No other fractures are seen. ? FINDINGS: CHEST: VASCULAR: The aorta is normal; no evidence of dissection, aneurysm, or traumatic aortic injury.? The central pulmonary arteries enhance normally. AORTIC ISTHMUS: Normal. MEDIASTINUM: No mediastinal fluid or hematoma.? No hilar or mediastinal lymphadenopathy. Mild coronary artery calcifications are present. LUNG: No nodules, mass, or focal consolidation. PLEURA: No pleural effusion. No pneumothorax.? No pleural mass or thickening. CHEST WALL/AXILLA: Unremarkable. ABDOMEN/PELVIS : LIVER : The liver is enlarged measuring 19.6 cm in cephalocaudad dimension with decreased attenuation consistent with hepatic steatosis. There is focal fatty sparing present around the gallbladder as well as a hepatic cyst (see below). There is a benign 4.5 cm hepatic cyst present in the right lobe of the liver with an adjacent smaller 2 mm indeterminate hypodensity medial (4:26 and 13:60). No significant worrisome? focal hepatic lesion or biliary ductal dilatation is present.? GALLBLADDER, AND BILIARY TREE The gallbladder is unremarkable with no evidence of radiopaque gallstones, gallbladder wall thickening, or obvious pericholecystic inflammatory changes. PANCREAS: Normal; no mass or surrounding fluid.? SPLEEN: Normal size.? No focal lesion.? ADRENAL GLANDS: Again seen is a heterogeneous left adrenal mass which has increased in size now measuring 2.5 x 2.3 x 2.5 cm. Previously by my measurements on the 09/11/2018 study, this was 2.2 x 2.1 x 2.3 cm. At the time of the prior CT scan of the abdomen, which was performed as adrenal washout study, the mass was deemed? to be indeterminate for benign adenoma.? KIDNEYS AND URETERS: The kidneys are normal in size, shape, and attenuation. No hydronephrosis, hydroureter, or calculi. ? URINARY BLADDER: No focal mass or wall thickening seen.? No bladder calculi.? GASTROINTESTINAL TRACT: Stomach and small bowel non-dilated.? No colonic wall thickening or pericolonic inflammatory changes.? Normal appendix. VASCULAR STRUCTURES: There is no evidence of aortic or iliac injury. The inferior vena cava is intact. There is an abdominal aortic aneurysm present which has increased in size from 3.2 cm in maximal transverse dimension in 2019 to 3.9 cm on the current study. The aneurysm begins about 2.5 cm below the level of the more inferior left renal artery. The aneurysm ends at the aortic bifurcation and not involving the iliac vessels. ACTIVE BLEEDING: None LYMPH NODES: No lymphadenopathy. ? PELVIC VISCERA: Surgically removed FREE FLUID: None. ABDOMINAL WALL: No significant hernia is appreciated.? OSSEOUS STRUCTURES:? No clavicle or scapula fracture.? No displaced rib fracture seen. No sternal fracture seen. Normal sagittal alignment of the thoracic and lumbar spine.? Vertebral body and disc heights are maintained; no compression fracture.? Posterior elements intact. Degenerative changes are present throughout the visualized spine. No sacral or pelvic fracture,? The visualized hips are intact. CT/CT abdomen pelvis w IV con IMPRESSION: 1.? No evidence of a traumatic injury in the chest, abdomen or pelvis. 2.? Enlarging abdominal aortic aneurysm measuring 3.2 cm in 2019 and 3.9 cm on the current study. Follow-up imaging is recommended every 2 years. 3.? Incidental note made of an enlarged fatty liver, benign hepatic cysts, indeterminate left adrenal mass which has increased in size from 3.2 to 3.9 cm (biopsy could be performed if clinically indicated), and degenerative changes in the spine. Discharge Plan Discharge Clinical Impression: Chest wall contusion, Distal radial fracture Patient Disposition: Home, Self-Care Instructions: Wrist Fracture in Adults (ED), Splint Care (ED), Rib Contusion (ED) Additional Instructions: Your CT scan does not show any fractures. You do have an abdominal aortic aneurysm which was seen on your last CT scan. It is recommend that you have follow-up imaging on this every 2 years. 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 Please follow-up with your primary care doctor in regards to this. Keep the splint on at all times. Do not get it wet Elevate the arm Call Orthopedics for follow-up appointment Prescriptions: New oxycodone 5 mg tablet 5 mg PO Q8H PRN (Reason: pain) Qty: 8 0RF Rx Instructions: Partial Fill upon patient request. No Action oxycodone 5 mg tablet 5 mg PO Q6H PRN (Reason: Pain, Moderate (Pain Scale 4-6) 7 Days Qty: 28 0RF lisinopril 10 mg tablet 10 mg PO DAILY gabapentin 300 mg capsule 600 mg PO BEDTIME PRN (Reason: Pain) tizanidine 4 mg Tablet 4 mg PO BEDTIME PRN (Reason: Muscle Pain) sennosides [Senna Lax] 8.6 mg Tablet 17.2 mg PO BEDTIME PRN (Reason: Constipation) 30 Days Qty: 60 0RF acetaminophen 325 mg Tablet 650 mg PO Q6H PRN (Reason: Pain, Mild (Pain Scale 1-3)) 30 Days Qty: 240 0RF aspirin 325 mg Tablet 325 mg PO BID 14 Days Qty: 28 0RF Referrals: [facility] [place] [facility] [Provider Group] - 1 week Interventions: ED Discharge Assessment Last Done: 09/20/22 10:58 Discharge Date/Time: 09/20/22 10:58
[2022-09-20 08:47] VITALS: RESP 18
[2022-09-20] MEDS: Morphine Sulfate 2 MG/ML CARTRIDGE IVPUSH (08:47)
[2022-09-20 08:48] LABS: Alanine Aminotransferase 26 U/L (0-31); Alkaline Phosphatase 84 U/L (39-117); Anion Gap 15 (12-20); Aspartate Amino Transferase 21 U/L (5-31); Bilirubin Direct < 0.2 mg/dL (0.0-0.5); Bilirubin Total 0.4 mg/dL (0.0-1.0); Blood Urea Nitrogen 28 mg/dL (9-16); Calcium 9.2 mg/dL (8.4-10.2); Carbon Dioxide 22 mmol/L (22-29); Chloride 108 mmol/L (96-108); Creatinine Clr Calc Pharmacy 72.3; Estimated Glomerular Filt Rate > 60; Glucose Random 95 mg/dL (60-115); Potassium 4.6 mmol/L (3.3-5.1); Sodium 140 mmol/L (135-145); Total Protein 7.1 g/dL (6.5-8.0)
[2022-09-20] MEDS: iohexoL 350 MG/ML 100 ML INFUS..BTL 85 ML IV (09:15)
== END 2022-09-20 10:58 | disposition home or self-care (01) ==
PROVIDERS: Nurse Practitioner Family; Emergency Provider Emergency Medicine; PCP Nurse Practitioner Family
DX: S20.211A Contusion of right front wall of thorax, initial encounter (principal); S52.571A Other intraarticular fracture of lower end of right radius, initial encounter for closed fracture; W17.89XA Other fall from one level to another, initial encounter; Y93.19 Activity, other involving water and watercraft; Y92.018 Other place in single-family (private) house as the place of occurrence of the external cause; Y99.9 Unspecified external cause status; R93.89 Abnormal findings on diagnostic imaging of other specified body structures; I71.40 Abdominal aortic aneurysm, without rupture, unspecified; E27.9 Disorder of adrenal gland, unspecified
CPT/HCPCS: 29125; 36415; 71101; 71260; 73090; 73120; 74177; 80048; 80076; 85025; 99284; J2270; Q9967

== ENCOUNTER 2022-09-28 12:03 | Outpatient (REF) | payer MEDICAID, SELFPAY | END 2022-09-28 12:04 | disposition home or self-care (01) | LOC: HO.HOSX 12:03 | PROVIDERS: Visit Provider Physician Assistant | DX: Z13.89 Encounter for screening for other disorder (principal) ==

== ENCOUNTER 2024-01-20 08:27 | Outpatient (REF) | payer MEDICARE, BC, SELFPAY | END 2024-01-20 08:28 | disposition home or self-care (01) | LOC: HO.SH 08:27 | PROVIDERS: PCP Nurse Practitioner Primary Care; Visit Provider Nurse Practitioner Primary Care | DX: Z01.118 Encounter for examination of ears and hearing with other abnormal findings (principal); H90.3 Sensorineural hearing loss, bilateral | CPT/HCPCS: 92557 ==

== ENCOUNTER 2024-07-02 07:04 | Outpatient (REF) | payer MEDICARE, BC, SELFPAY ==
--- NOTE | ~2024-07-02 | CT_ITS ---
EXAMINATION: CT OF THE THORAX, ABDOMEN, AND PELVIS, WITH CONTRAST CLINICAL INFORMATION: AAA COMPARISON: CT chest, abdomen, pelvis September 20, 2022 TECHNIQUE: Multiple axial images were obtained through the chest, abdomen, and pelvis after the administration of 85 mL of intravenous Omnipaque. Images were evaluated on independent dedicated 3-D workstation and 3-D images were reconstructed with concurrent radiologist supervision and subsequently interpreted. This CT examination was performed using dose optimization techniques as appropriate, variously including the following: *Automated exposure control *Adjustment of mA and/or kV according to patient size (this includes techniques or standardized protocols for targeted exams where dose is matched to indication/reason for exam; i.e. extremities or head) *Use of iterative reconstruction technique DLP: 707 mGy-cm FINDINGS: THORAX: Thyroid Gland: The visualized thyroid gland is normal. Lymph Nodes: No supraclavicular, axillary, mediastinal or hilar lymphadenopathy is identified. Heart: Normal in size. Mild coronary artery calcifications. Airways: The trachea and central bronchi are normal. Lungs: No airspace consolidation. No suspicious nodules or masses. Pleura: No pleural effusion. No pneumothorax. ABDOMEN/PELVIS: Liver: Diffuse hypoattenuation. Right hepatic cyst measuring 4.6 cm. Gallbladder: Noninflamed. Biliary System: No intrahepatic or extrahepatic biliary dilation. Pancreas: Homogeneous in attenuation. Spleen: Normal in size. Genitourinary: Bilateral kidneys demonstrate symmetric enhancement. No perinephric fluid collection. No renal calculi. No hydroureteronephrosis. Adrenal Glands: Stable size of left adrenal nodule measuring 2.4 cm. Reproductive: Uterus absent. No solid adnexal masses. Gastrointestinal: The visualized alimentary tract is normal in course. Severe descending and sigmoid diverticular disease without diverticulitis. No evidence of obstruction. Appendix: The appendix is seen in its entirety and is unremarkable. Peritoneum: No pneumoperitoneum. No intra-abdominal fluid collection. Vasculature: Infrarenal abdominal aortic aneurysm measuring 39 x 42 mm (previously 38 x 37 mm). Lymph Nodes: No pathologically enlarged abdominal or pelvic lymph nodes. SOFT TISSUES/MUSCULOSKELETAL: Multilevel degenerative changes, worst at L5-S1 on the left resulting in severe neural foraminal stenosis. CT/CT abdomen pelvis w IV con IMPRESSION: 1. When measured at the same axial slice, there has been mild interval increase in size of infrarenal abdominal aortic aneurysm measuring up to 42 mm (previously up to 38 mm). Based on published guidelines in J Am Babita Radiol 2013; 10(10):789-794 and J Vasc Surg. 2018; 67:2-77, the recommendation for an abdominal aortic aneurysm with diameter 4.0-4.4 cm is vascular consultation and subsequent follow-up every 12 months. 2. Hepatic steatosis. 3. Redemonstrated heterogeneous left adrenal nodule measuring 2.4 cm. This should be further evaluated with at least an MRI abdomen with contrast and/or biopsy. Fleischner guidelines were followed. Electronically signed by: Guy Maciel DO 07/24/2024 07:15 PM EST
[2024-07-02] MEDS: Barium Sulfate Oral (Mocha) 450 ML ORAL.SUSP 900 ML PO (09:45)
[2024-07-02] MEDS: iohexoL 350 MG/ML 100 ML INFUS..BTL IV (09:48)
[2024-07-02 14:35] LABS: Creatinine POC 0.8 mg/dL (0.5-1.4); GFR POC 60
== END 2024-07-02 07:05 | disposition home or self-care (01) ==
LOC: HO.CT 07:04
PROVIDERS: PCP Nurse Practitioner Primary Care; Visit Provider Nurse Practitioner Primary Care
DX: E27.8 Other specified disorders of adrenal gland (principal); I71.40 Abdominal aortic aneurysm, without rupture, unspecified; R06.09 Other forms of dyspnea
CPT/HCPCS: 71260; 74177; 82565; Q9967

== ENCOUNTER 2024-07-19 06:19 | Outpatient (REF) | payer MEDICARE, SELFPAY ==
[2024-07-19 06:36] LABS: MANUAL DIFF FLAG NO
[2024-07-19 07:48] LABS: Basophils Absolute Auto 0.1 X10*3/uL (0.0-0.2); Basophils Percent Auto 0.8 % (0-2); Eosinophils Absolute Auto 0.2 X10*3/uL (0.0-0.4); Eosinophils Percent Auto 2.1 % (0-4); Hematocrit 42.3 % (37.0-47.0); Hemoglobin 13.4 g/dl (12.0-16.0); Imm Gran Abs Auto 0.03 X10*3/uL (0.00-0.03); Imm Gran Pct Auto 0.4 % (0.0-0.4); Lymphocytes Absolute Auto 1.8 X10*3/uL (1.2-4.9); Lymphocytes Percent Auto 22.9 % (20-40); Mean Corpuscular HGB Conc 31.7 g/dl (31.0-35.0); Mean Corpuscular Hemoglobin 28.4 pg (27.0-33.0); Mean Corpuscular Volume 89.6 fL (80.0-98.0); Mean Platelet Volume 11.2 fL (9.4-12.3); Monocytes Absolute Auto 0.5 X10*3/uL (0.1-1.2); Monocytes Percent Auto 6.8 % (2-11); Neutrophils Absolute Auto 5.3 x10*3/uL (2.0-8.3); Platelet Count 168 X10*3/uL (160-400); Red Blood Count 4.72 X10*6/uL (4.20-5.50); Red Cell Distribution Width 14.2 % (11.0-16.0)
== END 2024-07-19 06:20 | disposition home or self-care (01) ==
LOC: HO.LAB 06:19
PROVIDERS: PCP Nurse Practitioner Primary Care; Visit Provider Nurse Practitioner Primary Care
DX: I10 Essential (primary) hypertension (principal)
CPT/HCPCS: 36415; 85025

== ENCOUNTER 2024-08-10 08:38 | Outpatient (REF) | payer MEDICARE, SELFPAY ==
--- NOTE | ~2024-08-10 | MR_ITS ---
EXAMINATION: MR ABDOMEN WITHOUT AND WITH CONTRAST CLINICAL INFORMATION: Left adrenal nodule COMPARISON: CT scan of abdomen and pelvis on 07/02/2024 TECHNIQUE: MR abdomen was performed without and with use of 9 mL intravenous Gadavist gadolinium contrast. Postcontrast images are performed in multiphase dynamic sequences. Imaging was performed in 3 planes. FINDINGS: ADRENAL: The Right adrenal gland is normal in shape and size. The Left adrenal gland shows abnormal enlargement into an oval shaped mass measuring 2.3 x 2.2 cm in maximum dimensions. There is significant signal loss in the out of phase image. Mean signal intensity of the tumor is 203 in in-phase image and 151 in [id number] image. The calculated adrenal to spleen chemical shift ratio (Adrenal SIo/Spleen SIo)/(Adrenal SIi/Spleen SIi) is 0.74 (threshold for benign adenoma is <0.71). The calculated signal intensity ratio (Adrenal SIi - Adrenal SIo)100%/Adrenal SIi is 25.6 (threshold for benign adenoma is >16.5). LIVER: The liver shows a large T2 hyperintense nonenhancing simple cyst 4.3 cm in diameter in posterior right hepatic lobe segment 6. The calculated hepatic fat percentage is 35.9%, compatible with severe hepatic steatosis. HEPATOBILIARY: Gallbladder is normal without filling defects. Common bile duct is not dilated. PANCREAS: No focal pancreatic lesion with abnormal signal can be seen. SPLEEN: Spleen is normal in size without focal lesion. Accessory spleen measuring 1.7 cm in diameter is seen anterior lateral to the lower border of spleen. KIDNEYS: Bilateral kidneys are normal in size without focal lesion. Infrarenal abdominal aortic fusiform aneurysm is seen measuring 3.9 cm in AP diameter, 4.0 cm in width, 5.0 cm in vertical height (3.9 x 4.[address] scan). Multiple diverticula are seen in the entire colon without inflammatory changes. Small umbilical hernia containing mesenteric fat is present. MR/MR abdomen wo/w con IMPRESSION: 1. Left adrenal gland mass is compatible with a benign adenoma. 2. Severe hepatic steatosis. 3. Large simple cyst in the right hepatic lobe segment 6. 4. Infrarenal abdominal aortic aneurysm measuring 3.9 x 4.0 x 5.0 cm (3.9 x 4.[address] scan). 5. Diffuse Colonic diverticulosis without inflammatory changes. 6. Small umbilical hernia containing mesenteric fat. Electronically signed by: Jenn Ruiz MD 09/18/2024 04:09 PM [facility]ITT
[2024-08-13] MEDS: gadobutroL 10 ML VIAL IVPUSH (13:49)
== END 2024-08-10 08:39 | disposition home or self-care (01) ==
LOC: HO.MRI 08:38
PROVIDERS: PCP Nurse Practitioner Primary Care; Visit Provider Nurse Practitioner Primary Care
DX: E27.8 Other specified disorders of adrenal gland (principal)
CPT/HCPCS: 74183; A9585